=== PATIENT | female | born 1975 | race Hispanic/Latino ===

== ENCOUNTER 2018-11-11 17:36 | Emergency (ER) | payer OTHER ==
[~2018-11-11] VITALS: Ht 152.4 cm; Wt 59.0 kg
--- OUTSIDE RECORDS SUMMARY | 2018-11-11 17:38 | XMS REPORT ---
Author Author [facility], [place] Address Unknown Phone Unavailable Care Team Providers Care Edge Baster Name Role Phone UNKNOWN, REFFERING PP Unavailable OMEGA CHOW Unavailable Unavailable Problems This patient has no known problems. Allergies, Adverse Reactions, Alerts This patient has no known allergies or adverse reactions. Medications This patient has no known medications. Encounters Start Date/Time End Date/Time Encounter Type Admission Type Attending Clinicians Care Facility Care Department Encounter ID 2017-09-10 07:23:00 2017-09-10 07:23:00 Outpatient [facility] [id number] 2017-08-26 09:21:00 2017-08-26 09:21:00 Outpatient [facility] [id number] 2017-07-23 08:43:00 2017-07-23 08:43:00 Outpatient [facility] [id number] 2017-06-29 13:38:00 2017-06-29 13:38:00 Outpatient [facility] [id number] Results Test Description Test Time Test Comments Text Results Atomic Results Result Comments Mammo Digital Mammography Diagnostic, Unilat 2018-06-06 15:19:00 CLINICAL INDICATION: Status post ultrasound-guided biopsies with marker clip placement.MODALITY: Siemens Inspiration Full Field Digital MammographyTECHNIQUE: Digital acquisition of the breasts is performed on the ACR accredited Full Field Digital Mammography Unit. Computer Assisted Detection (CAD) is then accomplished using [employer]. Imaging of the left breast is performed.FINDINGS:COMPARISON STUDY: 05/11/2018The breasts are heterogeneously dense. This may lower the sensitivity of mammography. There is a new shaped marker clip in the upper outer left breast. This corresponds with the MRI enhancing nodule. There is a second new marker clip in the shape of a U in the retroareolar region.IMPRESSION:Status post ultrasound-guided biopsies with marker clip placement. Category: BIRADS - Post procedure mammograms for marker clip placement. For internal use only X:X US Biopsy, Breast Ultrasound guidance, with placement of breast localization first lesion 2018-06-06 14:32:54 CLINICAL INDICATION: N63.20 Unspecified lump in the left breast, unspecified quadrantFINDINGS:The risks and benefits of the procedure were discussed with the patient and a written informed consent obt ained.The nodule in the left breast 12 o clock subareolar region was identified under ultrasound. The skin was then cleansed with Betadine. Local anesthesia was obtained with 1% lidocaine. A small skin angelique was made using a scalpel. Under ultrasound guidance, several cores were obtained from the nodule using a 14 gauge Somacore biopsy needle. The cores were placed in formalin and sent to pathology. A U-shaped marker clip was placed at the site of biopsy. The skin incision was closed with Steri-Strips. The patient tolerated procedure well without any complications.IMPRESSION:Status post ultrasound-guided biopsy of nodule in the left breast 12 o clock, retroareolar region.Final pathology demonstrates hyalinized fibroadenoma; microcalcifications, calcium phosphate type, associated with benign lobules.The findings are concordant with imaging. A 6-month follow-up breast MRI and left breast ultrasound are recommended to document stability.The results were faxed to Dr. Chapa s office on 018.BIRADS 2 - Benign. For internal use only X:6 US Biopsy, Breast Ultrasound guidance, with placement of breast localization first lesion 2018-06-06 14:19:02 CLINICAL INDICATION: N63.20 Unspecified lump in the left breast, unspecified quadrantFINDINGS:The risks and benefits of the procedure were discussed with the patient and a written informed consent obt ained.The nodule in the left breast 2 o clock, 5 cm from the nipple was identified under ultrasound. The skin was then cleansed with Betadine. Local anesthesia was obtained with 1% lidocaine. A small skin angelique was made using a scalpel. Under ultrasound guidance, several cores were obtained from the nodule using a 14 gauge Somacore biopsy needle. The cores were placed in formalin and sent to pathology. An eye shaped marker clip was placed at the site of biopsy. The skin incision was closed with Steri-Strips. The patient tolerated procedure well without any complications.IMPRESSION:Status post ultrasound-guided biopsy of nodule in the left breast 2 o clock.Final pathology demonstrates sclerosing adenosis, pseudoangiomatous stromal hyperplasia.The findings are concordant with imaging. A 6-month follow-up breast MRI and left breast ultrasound are recommended to document stability.The findings were faxed to Dr. Chapa on 06/08/2018. For internal use only X:6 D-DIMER 2017-11-11 22:17:00 D-DIMER QUANTITATIVE (MobiPixie) (test wtao=156) 0.42 MG/L FEU <0.50 Intended Use: The D-Dimer Assay can be used to aid in the diagnosis of Deep Vein Thrombosis (DVT) and Pulmonary Embolism Disease (PED).In patients with low pre- test probability, various studies concerning STA Liatest D-dimer test have repor darline that with a cutoff value of 0.50 MG/L FEU, the Negative Predictive Value (PATIENT RELATIONS COORDINATOR V) regarding the exclusion of thrombosis is within 95-100% range.CREATINE KINASE (CK), TOTAL AND [id number] 22:16:00* Test Item Value Reference Range Comments CREATINE KINASE TOTAL (BEAKER) (test xmmy=360) 82 U/L 29-200 CREATINE KINASE-MB (AMS-QiAKER) (test eawm=172) 0.9 ng/mL 0.0-6.6 CREATINE KINASE-MB INDEX (BEAKER) (test rerz=892) 1.1 % CK-MB Reference Range:<6.7 Normal6.7-10.0 Borderline>10.0 Abnormal TROPONIN [id number] 22:16:00* Test Item Value Reference Range Comments TROPONIN I (AMS-QiAKER) (test keej=433) < ng/mL 0.00-0.03 Troponin I (TnI) levels must be interpreted in the context of the presenting sym ptoms and the clinical findings. Elevated TnI levels indicate myocardial damage, but are not specific for ischemic heart disease. Elevated TnI levels are seen in patients with other cardiac conditions (including myocarditis and congestive h eart failure), and slight TnI elevations occur in patients with other conditions , including sepsis, renal failure, acidosis, acute neurological disease, and per sistent tachyarrhythmia.HCG, QUANTITATIVE, [id number] 22:15:00* Test Item Value Reference Range Comments GONADOTROPIN, CHORIONIC (HCG) QUANT (AMS-QiAKER) (test eicl=527) < mIU/mL 0-10 Non- Females: <10 mIU/mL Females: Gestation Age Reference Range(mIU/mL) 0.2-1 Week 5-50 1-2 Weeks 50-500 2-3 Weeks 100-5,000 3-4 Weeks 500-10,000 4-5 Weeks 1,000-50,000 5-6 Weeks 10,000-100,000 6-8 Weeks 15,000-200,000 2-3 Months 10,000-100,000 RAD, CHEST, 1 VIEW, NON [id number] 22:11:00Reason for exam:->PALPITATIONSReason for exam:-> HYPERTENSIONReason for exam:->SHORTNESS OF BREATHShould this be performed at the bedside?->YesFINAL REPORT History: Palpitations, hypertension, shortness of breath. Comparison: None. Findings: A single view of the chest is submitted. The cardiomediastinal contours are unremarkable. There is no focal consolidation, pneumothorax, large pleural effusion or evidence of overt pulmonary edema. There is no acute bony abnormality. Impression: No acute abnormality. Signed: Adonis Quick MDReport Verified Date/Time: 11/11/2017 22:11:29 Reading Location: [address] Reading Room C METABOLIC [id number] 22:09:00* Test Item Value Reference Range Comments SODIUM (BEAKER) (test gbue=833) 138 meq/L 136-145 POTASSIUM (BEAKER) (test xkvu=258) 3.7 meq/L 3.5-5.1 Specimen slightly hemolyzed CHLORIDE (BEAKER) (test cxip=851) 108 meq/L 98-107 CO2 (BEAKER) (test wdqi=112) 17 meq/L 22-29 BLOOD UREA NITROGEN (BEAKER) (test ahpv=925) 8 mg/dL 7-21 CREATININE (BEAKER) (test xyzg=761) 0.70 mg/dL 0.57-1.25 Specimen slightly hemolyzed GLUCOSE RANDOM (BEAKER) (test lsie=188) 100 mg/dL 70-105 CALCIUM (BEAKER) (test mchn=473) 9.4 mg/dL 8.4-10.2 EGFR (BEAKER) (test fflc=7809) 92 mL/min/1.73 sq m INSUFFICIENT CLINICAL DATA TO CALCULATE ESTIMATED GFR. CBC W/PLT COUNT & AUTO [id number] 21:50:00* Test Item Value Reference Range Comments WHITE BLOOD CELL COUNT (BEAKER) (test skay=797) 10.2 K/ L 3.5-10.5 RED BLOOD CELL COUNT (BEAKER) (test utnt=935) 4.08 M/ L 3.93-5.22 HEMOGLOBIN (BEAKER) (test mqou=664) 11.2 GM/DL 11.2-15.7 HEMATOCRIT (BEAKER) (test hfpp=393) 33.2 % 34.1-44.9 MEAN CORPUSCULAR VOLUME (BEAKER) (test lclx=379) 81.4 fL 79.4-94.8 MEAN CORPUSCULAR HEMOGLOBIN (BEAKER) (test dnea=513) 27.5 pg 25.6-32.2 MEAN CORPUSCULAR HEMOGLOBIN CONC (BEAKER) (test crxh=405) 33.7 GM/DL 32.2-35.5 RED CELL DISTRIBUTION WIDTH (BEAKER) (test ciob=866) 13.2 % 11.7-14.4 PLATELET COUNT (BEAKER) (test eezh=016) 336 K/CU MM 150-450 MEAN PLATELET VOLUME (BEAKER) (test qdlg=729) 10.9 fL 9.4-12.3 NUCLEATED RED BLOOD CELLS (BEAKER) (test fiao=121) 0 /100 WBC 0-0 NEUTROPHILS RELATIVE PERCENT (BEAKER) (test pisl=577) 64 % LYMPHOCYTES RELATIVE PERCENT (BEAKER) (test mlkr=697) 26 % MONOCYTES RELATIVE PERCENT (BEAKER) (test cgdc=698) 9 % EOSINOPHILS RELATIVE PERCENT (BEAKER) (test qdqm=834) 1 % BASOPHILS RELATIVE PERCENT (BEAKER) (test lest=345) 1 % NEUTROPHILS ABSOLUTE COUNT (BEAKER) (test qbdt=197) 6.49 K/ L 1.56-6.13 LYMPHOCYTES ABSOLUTE COUNT (BEAKER) (test wkyu=315) 2.63 K/ L 1.18-3.74 MONOCYTES ABSOLUTE COUNT (BEAKER) (test yybh=013) 0.89 K/ L 0.24-0.36 EOSINOPHILS ABSOLUTE COUNT (BEAKER) (test zlpt=448) 0.10 K/ L 0.04-0.36 BASOPHILS ABSOLUTE COUNT (BEAKER) (test gkhl=139) 0.05 K/ L 0.01-0.08 IMMATURE GRANULOCYTES-RELATIVE PERCENT (BEAKER) (test mxzi=8300) 0 % 0-1 [facility] MAMMO DIAGNOSTIC UNI [id number] 10:51:29Dictation location: R 16Right breast stereotactic core biopsy with marker clip placement andpostprocedure mammogram: History: 42-year-old female presents for st ereotactic biopsy ofmicrocalcifications in the central outer right breast. Image s from mammogram dated 07/23/2017 were reviewed. Informed consentwas obtained fr om the patient which included a discussion of risks,benefits and alternatives.Th e patient was positioned prone on the table and head golf professional and stereotacticimages of the calcifications in the central outer right breast wereobtained. The breast wa s prepped using Exidine solution. 1% Lidocainewas injected for superficial anest hesia followed by 1% lidocaine withepinephrine injected to anesthetize the area surrounding themammographic lesion.An incision was made in the skin with a scalp el. Using a lateralapproach, the vacuum-assisted probe was inserted through the incision tothe level of the lesion following the stereotactic coordinates. Stere otactic images were obtained to confirm accurate positioning of theprobe and mul tiple 12 gauge cores of tissue were acquired. A biopsymarker was deployed to ma rk the biopsy site.Calcifications were present in the specimen radiograph.Postpr ocedure mammogram was performed to evaluate clip placement. Pleasenote, a diagno stic mammogram was not performed. The biopsy marker is inthe expected location. The tissue was sent to the pathologist for histologic analysis.Pressure was held on the biopsy site until all bleeding subsided. Theestimated blood loss was ne gligible. Post biopsy instructions werereviewed with the patient and a copy was given to her.The patient tolerated the procedure well and left the department in goodcondition.IMPRESSION:Stereotactic vacuum-assisted core biopsy of calcificat ions in thecentral outer right breast. Histopathology is pending.MAMM PERQ DEV BREAST 1ST [id number] 10:51:29Dictation location: R 16Right breast stereotactic core biopsy with marker clip placement andpostprocedure mammogram: History: 42-year-old female presents for stereotactic biopsy ofmicrocalcifications in the central outer right breast. Images from mammogram dated 07/23/2017 were reviewed. Informed consentwas obtained from the patient which included a discussion of risks,benefits and alternatives.The patient was positioned prone on the table and head golf professional and stereotacticimages of the calcifications in the central outer right breast wereobtained. The breast was prepped using Exidine solution. 1% Lidocainewas injected for superficial anest hesia followed by 1% lidocaine withepinephrine injected to anesthetize the area surrounding themammographic lesion.An incision was made in the skin with a scalp el. Using a lateralapproach, the vacuum-assisted probe was inserted through the incision tothe level of the lesion following the stereotactic coordinates. Stere otactic images were obtained to confirm accurate positioning of theprobe and mul tiple 12 gauge cores of tissue were acquired. A biopsymarker was deployed to ma rk the biopsy site.Calcifications were present in the specimen radiograph.Postpr ocedure mammogram was performed to evaluate clip placement. Pleasenote, a diagno stic mammogram was not performed. The biopsy marker is inthe expected location. The tissue was sent to the pathologist for histologic analysis.Pressure was held on the biopsy site until all bleeding subsided. Theestimated blood loss was ne gligible. Post biopsy instructions werereviewed with the patient and a copy was given to her.The patient tolerated the procedure well and left the department in goodcondition.IMPRESSION:Stereotactic vacuum-assisted core biopsy of calcificat ions in thecentral outer right breast. Histopathology is pending.US BX BREAST 1ST LESION US [id number] 13:34:55Dictation location: R 16BILATERAL BREAST ULTRASOUND GUIDED CORE BIOPSY WITH MARKER PLACEMENT ANDPOST-PROCEDURE RIGHT/LEFT MAMMOGRAM: History: The patient presents for ultrasound-guided core biopsy of theright breast at 10:00 and left breast at 3:00.Comparison made to prior ultrasound dated 07/23/2017.Informed consent was obtained from the patient which included adiscussion of risks, benefits and alternatives.RIGHT BREAST 10:00, 8 CM FROM THE NIPPLE:Using ultrasound guidance, aseptic technique and %1 lidocaine localanesthesia, A 14 gauge core biopsy needle was placed to the level of thenodule via coaxial technique using ultrasound guidance and multiplecores were obtained. . A ribbon-shaped marker was deployed at the biopsysite. The patient tolerated the procedure without difficulty. Thetissue specimens were placed in formalin and submitted to thepathologist for histologic analysis. Pressure was held on the biopsysite until all bleeding subsided. The estimated blood loss wasnegligible. The skin incision was closed with Steri-strips. LEFT BREAST 3:00, 4 CM FROM THE NIPPLE:Using ultrasound guidance, aseptic technique and %1 lidocaine localanesthesia, A 14 gauge core biopsy needle was placed to the level of thenodule via coaxial technique using ultrasound guidance and multiplecores were obtained. A ribbon-shaped marker was deployed at the biopsysite. The patient tolerated the procedure without difficulty. Thetissue specimens were placed in formalin and submitted to thepathologist for histologic analysis. Pressure was held on the biopsysite until all bleeding subsided. The estimated blood loss wasnegligible. The skin incision was closed with Steri-strips. Postprocedure mammogram was performed to evaluate clip placement. Pleasenote, a diagnostic mammogram was not performed. The biopsy marker is inthe expected location. Post biopsy instructions were reviewed with the patient and a copy w asgiven to her. The patient tolerated the procedure well and left thedepartment in good condition.IMPRESSION:1. Ultrasound guided core biopsy of the right kapil st at 10:00 and leftbreast at 3:00 with marker placement. 2. Histopathology is pending.US BX BREAST 1ST LESION US [id number] 13:34:55Dictation location: R 16BILATERAL BREAST ULTRASOUND GUIDED CORE BIOPSY WITH MARKER PLACEMENT ANDPOST- PROCEDURE RIGHT/LEFT MAMMOGRAM: History: The patient presents for ultrasound- guided core biopsy of theright breast at 10:00 and left breast at 3:00.Comparison made to prior ultrasound dated 07/23/2017.Informed consent was obtained from the patient which included adiscussion of risks, benefits and a lternatives.RIGHT BREAST 10:00, 8 CM FROM THE NIPPLE:Using ultrasound guidance, aseptic technique and %1 lidocaine localanesthesia, A 14 gauge core biopsy needl e was placed to the level of thenodule via coaxial technique using ultrasound gu idance and multiplecores were obtained. . A ribbon-shaped marker was deployed at the biopsysite. The patient tolerated the procedure without difficulty. Thetis tristin specimens were placed in formalin and submitted to thepathologist for histol ogic analysis. Pressure was held on the biopsysite until all bleeding subsided. The estimated blood loss wasnegligible. The skin incision was closed with Steri- strips. LEFT BREAST 3:00, 4 CM FROM THE NIPPLE:Using ultrasound guidance, ase ptic technique and %1 lidocaine localanesthesia, A 14 gauge core biopsy needle w as placed to the level of thenodule via coaxial technique using ultrasound thi nce and multiplecores were obtained. A ribbon-shaped marker was deployed at the biopsysite. The patient tolerated the procedure without difficulty. Thetissue s pecimens were placed in formalin and submitted to thepathologist for histologic analysis. Pressure was held on the biopsysite until all bleeding subsided. The estimated blood loss wasnegligible. The skin incision was closed with Steri-stri ps. Postprocedure mammogram was performed to evaluate clip placement. Pleaseno te, a diagnostic mammogram was not performed. The biopsy marker is inthe expecte d location. Post biopsy instructions were reviewed with the patient and a copy w asgiven to her. The patient tolerated the procedure well and left thedepartment in good condition.IMPRESSION:1. Ultrasound guided core biopsy of the right kapil st at 10:00 and leftbreast at 3:00 with marker placement. 2. Histopathology is pending.[facility] MAMMO DIAGNOSTIC UNI [id number] 13:34:55Dictation location: R 16BILATERAL BREAST ULTRASOUND GUIDED CORE BIOPSY WITH MARKER PLACEMENT ANDPOST-PROCEDURE RIGHT/LEFT MAMMOGRAM: History: The patient presents for ultrasound-guided core biopsy of theright breast at 10:00 and left breast at 3:00.Comparison made to prior ultrasound dated 07/23/2017.Informed consent was obtained from the patient which included adiscussion of risks, benefits and a lternatives.RIGHT BREAST 10:00, 8 CM FROM THE NIPPLE:Using ultrasound guidance, aseptic technique and %1 lidocaine localanesthesia, A 14 gauge core biopsy needl e was placed to the level of thenodule via coaxial technique using ultrasound gu idance and multiplecores were obtained. . A ribbon-shaped marker was deployed at the biopsysite. The patient tolerated the procedure without difficulty. Thetis tristin specimens were placed in formalin and submitted to thepathologist for histol ogic analysis. Pressure was held on the biopsysite until all bleeding subsided. The estimated blood loss wasnegligible. The skin incision was closed with Steri- strips. LEFT BREAST 3:00, 4 CM FROM THE NIPPLE:Using ultrasound guidance, ase ptic technique and %1 lidocaine localanesthesia, A 14 gauge core biopsy needle w as placed to the level of thenodule via coaxial technique using ultrasound thi nce and multiplecores were obtained. A ribbon-shaped marker was deployed at the biopsysite. The patient tolerated the procedure without difficulty. Thetissue s pecimens were placed in formalin and submitted to thepathologist for histologic analysis. Pressure was held on the biopsysite until all bleeding subsided. The estimated blood loss wasnegligible. The skin incision was closed with Steri-stri ps. Postprocedure mammogram was performed to evaluate clip placement. Pleaseno te, a diagnostic mammogram was not performed. The biopsy marker is inthe expecte d location. Post biopsy instructions were reviewed with the patient and a copy w asgiven to her. The patient tolerated the procedure well and left thedepartment in good condition.IMPRESSION:1. Ultrasound guided core biopsy of the right kapil st at 10:00 and leftbreast at 3:00 with marker placement. 2. Histopathology is pending.[facility] MAMMO DIAGNOSTIC UNI [id number] 13:34:55Dictation location: R 16BILATERAL BREAST ULTRASOUND GUIDED CORE BIOPSY WITH MARKER PLACEMENT ANDPOST-PROCEDURE RIGHT/LEFT MAMMOGRAM: History: The patient presents for ultrasound-guided core biopsy of theright breast at 10:00 and left breast at 3:00.Comparison made to prior ultrasound dated 07/23/2017.Informed consent was obtained from the patient which included adiscussion of risks, benefits and a lternatives.RIGHT BREAST 10:00, 8 CM FROM THE NIPPLE:Using ultrasound guidance, aseptic technique and %1 lidocaine localanesthesia, A 14 gauge core biopsy needl e was placed to the level of thenodule via coaxial technique using ultrasound gu idance and multiplecores were obtained. . A ribbon-shaped marker was deployed at the biopsysite. The patient tolerated the procedure without difficulty. Thetis tristin specimens were placed in formalin and submitted to thepathologist for histol ogic analysis. Pressure was held on the biopsysite until all bleeding subsided. The estimated blood loss wasnegligible. The skin incision was closed with Steri- strips. LEFT BREAST 3:00, 4 CM FROM THE NIPPLE:Using ultrasound guidance, ase ptic technique and %1 lidocaine localanesthesia, A 14 gauge core biopsy needle w as placed to the level of thenodule via coaxial technique using ultrasound thi nce and multiplecores were obtained. A ribbon-shaped marker was deployed at the biopsysite. The patient tolerated the procedure without difficulty. Thetissue s pecimens were placed in formalin and submitted to thepathologist for histologic analysis. Pressure was held on the biopsysite until all bleeding subsided. The estimated blood loss wasnegligible. The skin incision was closed with Steri-stri ps. Postprocedure mammogram was performed to evaluate clip placement. Pleaseno te, a diagnostic mammogram was not performed. The biopsy marker is inthe expecte d location. Post biopsy instructions were reviewed with the patient and a copy w asgiven to her. The patient tolerated the procedure well and left thedepartment in good condition.IMPRESSION:1. Ultrasound guided core biopsy of the right kap[address] st at 10:00 and leftbreast at 3:00 with marker placement. 2. Histopathology is pending.US BREAST [id number] 10:55:25MAM MAMMO DIAGNOSTIC UNI W/CAD-RIGHT, US BREAST COMPLETE-RIGHT, USBREAST COMPLETE-LEFTR92.1: MAMMOGRAPHIC CALCIFCN FOUND ON DIAGNOSTIC IMAGING OF BREAST.Dictation Location: [id number] Information: 42-year-old female recalled from screeningmammogram dated 06/29/2017 for further evaluation of right breastmicrocalcifications and bilateral dense breasts.Technique: Right digital mammogram with computer assisted diagnosis. Right ML projection as well as CC and ML magnification views wereobtained.Comparison: 06/29/2017Findings: The breast is heterogeneously d ense, which may obscure small masses.Magnification views of microcalcifications in the central outer rightbreast, demonstrates grouped pleomorphic microcalcific ations that do notlayer on the lateral view. Bilateral breast ultrasound:Subsequ ent bilateral breast ultrasound was performed utilizing a highfrequency linear a rray transducer. All 4 quadrants, axilla, andretroareolar of both breasts were evaluated.Right breast:- 9:00, 5 cm from the nipple, 6 x 2 x 5 mm intramammary l ymph node withnormal morphology- 10:00, 8 cm from the nipple, 7 x 3 x 8 mm irreg ular hypoechoic nodule,possibly corresponding to the calcification seen mammogra phically.Ultrasound-guided core biopsy is recommended- 11:00, 2 cm from the nipp le, 3 x 2 x 3 mm simple cyst- Axilla, lymph node with normal morphologyLeft kapil st:- Retroareolar, dilated duct with debris- 3:00, 4 cm from the nipple, 7 x 4 x 4 mm irregular hypoechoic nodule.Ultrasound-guided core biopsy is recommended.- Axilla, lymph node with normal morphologyIMPRESSION: Suspicious nodule in the right breast at 10:00, possibly correspondingto an area of suspicious microcalci fications in the central outer rightbreast. Ultrasound-guided core biopsy of the right breast at 10:00 isrecommended. If this area does not correspond to the s uspiciousmammographic calcifications, then additional stereotactic biopsy ofthos e calcifications is recommended.Indeterminate 7 mm nodule in the left breast at 3:00. Ultrasound-guidedcore biopsy is recommended.ACR BI-RADS CATEGORY: 4-SUSP ICIOUS RECOMMENDATION: BILATERAL ULTRASOUND-GUIDED CORE BIOPSY. RIGHT BREASTSTE REOTACTIC BIOPSY.US BREAST [id number] 10:55:25MAM MAMMO DIAGNOSTIC UNI W/CAD-RIGHT, US BREAST COMPLETE-RIGHT, USBREAST COMPLETE-LEFTR92.1: MAMMOGRAPHIC CALCIFCN FOUND ON DIAGNOSTIC IMAGING OF BREAST.Dictation Location: [id number] Information: 42-year-old female recalled from screeningmammogram dated 06/29/2017 for further evaluation of right breastmicrocalcifications and bilateral dense breasts.Technique: Right digital mammogram with computer assisted diagnosis. Right ML projection as well as CC and ML magnification views wereobtained.Comparison: 06/29/2017Findings: The breast is heterogeneously d ense, which may obscure small masses.Magnification views of microcalcifications in the central outer rightbreast, demonstrates grouped pleomorphic microcalcific ations that do notlayer on the lateral view. Bilateral breast ultrasound:[facility] bilateral breast ultrasound was performed utilizing a highfrequency linear a rray transducer. All 4 quadrants, axilla, andretroareolar of both breasts were evaluated.Right breast:- 9:00, 5 cm from the nipple, 6 x 2 x 5 mm intramammary l ymph node withnormal morphology- 10:00, 8 cm from the nipple, 7 x 3 x 8 mm irreg ular hypoechoic nodule,possibly corresponding to the calcification seen mammogra phically.Ultrasound-guided core biopsy is recommended- 11:00, 2 cm from the nipp le, 3 x 2 x 3 mm simple cyst- Axilla, lymph node with normal morphologyLeft kapil st:- Retroareolar, dilated duct with debris- 3:00, 4 cm from the nipple, 7 x 4 x 4 mm irregular hypoechoic nodule.Ultrasound-guided core biopsy is recommended.- Axilla, lymph node with normal morphologyIMPRESSION: Suspicious nodule in the right breast at 10:00, possibly correspondingto an area of suspicious microcalci fications in the central outer rightbreast. Ultrasound-guided core biopsy of the right breast at 10:00 isrecommended. If this area does not correspond to the s uspiciousmammographic calcifications, then additional stereotactic biopsy ofthos e calcifications is recommended.Indeterminate 7 mm nodule in the left breast at 3:00. Ultrasound-guidedcore biopsy is recommended.ACR BI-RADS CATEGORY: 4-SUSP ICIOUS RECOMMENDATION: BILATERAL ULTRASOUND-GUIDED CORE BIOPSY. RIGHT BREASTSTE REOTACTIC BIOPSY.ELLEN MAMMO DIAGNOSTIC UNI [id number] 10:55:25MAM MAMMO DIAGNOSTIC UNI W/CAD-RIGHT, US BREAST COMPLETE-RIGHT, USBREAST COMPLETE- LEFTR92.1: MAMMOGRAPHIC CALCIFCN FOUND ON DIAGNOSTIC IMAGING OF BREAST.Dictation Location: [id number] Information: 42-year-old female recalled from screening mammogram dated 06/29/2017 for further evaluation of right breastmicrocalcificat ions and bilateral dense breasts.Technique: Right digital mammogram with compute r assisted diagnosis. Right ML projection as well as CC and ML magnification vie ws wereobtained.Comparison: 06/29/2017Findings: The breast is heterogeneously d ense, which may obscure small masses.Magnification views of microcalcifications in the central outer rightbreast, demonstrates grouped pleomorphic microcalcific ations that do notlayer on the lateral view. Bilateral breast ultrasound:[facility] bilateral breast ultrasound was performed utilizing a highfrequency linear a rray transducer. All 4 quadrants, axilla, andretroareolar of both breasts were evaluated.Right breast:- 9:00, 5 cm from the nipple, 6 x 2 x 5 mm intramammary l ymph node withnormal morphology- 10:00, 8 cm from the nipple, 7 x 3 x 8 mm irreg ular hypoechoic nodule,possibly corresponding to the calcification seen mammogra phically.Ultrasound-guided core biopsy is recommended- 11:00, 2 cm from the nipp le, 3 x 2 x 3 mm simple cyst- Axilla, lymph node with normal morphologyLeft kapil st:- Retroareolar, dilated duct with debris- 3:00, 4 cm from the nipple, 7 x 4 x 4 mm irregular hypoechoic nodule.Ultrasound-guided core biopsy is recommended.- Axilla, lymph node with normal morphologyIMPRESSION: Suspicious nodule in the right breast at 10:00, possibly correspondingto an area of suspicious microcalci fications in the central outer rightbreast. Ultrasound-guided core biopsy of the right breast at 10:00 isrecommended. If this area does not correspond to the s uspiciousmammographic calcifications, then additional stereotactic biopsy ofthos e calcifications is recommended.Indeterminate 7 mm nodule in the left breast at 3:00. Ultrasound-guidedcore biopsy is recommended.ACR BI-RADS CATEGORY: 4-SUSP ICIOUS RECOMMENDATION: BILATERAL ULTRASOUND-GUIDED CORE BIOPSY. RIGHT BREASTSTE REOTACTIC BIOPSY.[facility] MAMMO SCREENING PASTOR [id number] 16:07:54MAM MAMMO SCREENING PASTOR W/[id number]: ENCNTR SCREEN MAMMOGRAM FOR MALIGNANT NEOPLASM OF BREAST.Dictation Location: [id number] Information: Screening mammogram.T echnique: Bilateral digital mammogram with computer assisted diagnosis. Bilatera l CC and MLO views were obtained.Comparison: None.Findings: The breasts are het erogeneously dense, which may obscure small masses. There are grouped microcalci fications in the central outer right breast.Additional scattered benign type palma cifications are present bilaterally.There are no suspicious masses or microcalci fications.IMPRESSION: Right breast microcalcifications, for which magnification views arerecommended for further evaluation.Dense breast, for which bilateral b reast ultrasound is recommended forfurther evaluation.The patient will be contac darline regarding need for additional imaging.ACR BI=RADS CATEGORY-0 INCOMPLETE. NE ED ADDITIONAL IMAGING EVALUATION.RECOMMENDATION: DIAGNOSTIC RIGHT MAMMOGRAM. BI LATERAL BREASTULTRASOUND.
--- OUTSIDE RECORDS SUMMARY | 2018-11-11 17:38 | XMS REPORT | Clinical Summary ---
Author Author JULISA [facility] Address Unknown Phone Unavailable Care Team Providers Care Space Operations Officer Name Role Phone Jaki Mike MD PCP Allergies No Known Allergies Medications No known medications Active Problems Problem Noted Date Non-cardiac chest pain 11/11/2017 Anxiety state 11/11/2017 Dyspnea and respiratory abnormality 11/11/2017 Encounters Care Team Description Date Type Specialty Sandip, Madelyn Feliciano DO Non-cardiac chest pain (Primary Dx); Anxiety state; Dyspnea and respiratory abnormality 11/11/2017 Emergency Emergency Medicine 11/11/2017 Orders Only General Internal Medicine after 11/10/2017 Social History Date Tobacco Use Types Packs/Day Years Used Never Smoker Smokeless Tobacco: Never Used Alcohol Use Drinks/Week oz/Week Comments No Sex Assigned at Date Recorded Not on file Industry Job Start Date Occupation Not on file Not on file Not on file Travel End Travel History Travel Start No recent travel history available. Last Filed Vital Signs Time Taken Vital Sign Reading 11/11/2017 10:40 PM CDT Blood Pressure 134/84 11/11/2017 10:40 PM CDT Pulse 99 11/11/2017 8:29 PM CDT Temperature 36.8 C (98.3 F) 11/11/2017 8:29 PM CDT Respiratory Rate 20 11/11/2017 10:40 PM CDT Oxygen Saturation 100% - Inhaled Oxygen - Concentration 11/11/2017 8:29 PM CDT Weight 59 kg (130 lb) 11/11/2017 8:29 PM CDT Height 152.4 cm (5') 11/11/2017 8:29 PM CDT Body Mass Index 25.39 Plan of Treatment Not on file Procedures Comments Procedure Name Priority Date/Time Associated Diagnosis ED ECG INTERPRETATION Routine 11/11/2017 10:22 PM CDT XR CHEST 1 VIEW STAT 11/11/2017 PORTABLE/BEDSIDE 10:05 PM CDT CBC W/PLT COUNT & AUTO STAT 11/11/2017 DIFFERENTIAL 9:40 PM CDT HCG, QUANTITATIVE, STAT 11/11/2017 9:40 PM CDT BASIC METABOLIC PANEL (7) STAT 11/11/2017 9:40 PM CDT D-DIMER STAT 11/11/2017 9:40 PM CDT TROPONIN I STAT 11/11/2017 9:40 PM CDT CREATINE KINASE (CK), STAT 11/11/2017 TOTAL AND MB 9:40 PM CDT CBC W/PLT COUNT & AUTO STAT 11/11/2017 DIFFERENTIAL 9:40 PM CDT ECG 12-LEAD STAT 11/11/2017 8:26 PM CDT after 11/10/2017 Results * ED ECG Interpretation (11/11/2017 10:22 PM CDT) Narrative Performed At Madelyn Oropeza DO 11/11/2017 10:22 PM ECG/EKG Interpretation Date/Time: 11/11/2017 10:21 PM Performed by: MADELYN OROPEZA Authorized by: MADELYN OROPEZA The ECG was interpreted by ED physician. This ECG was not compared with previous ECG(s).The ECG is interpreted as sinus tachycardia. Rate is tachycardic. Heart rate is 119 BPM. Conduction: conduction normal. ST segments normal. T waves normal. Pickens is normal. Other findings: no other findings. Clinical Impression: non-specific ECGECG reviewed and does not meet STEMI criteria. * XR chest 1 view portable / bedside (11/11/2017 10:05 PM CDT) Specimen Narrative Performed At FINAL REPORT [facility] History: Palpitations, hypertension, shortness of breath. Comparison: None. Findings: A single view of the chest is submitted. The cardiomediastinal contours are unremarkable. There is no focal consolidation, pneumothorax, large pleural effusion or evidence of overt pulmonary edema. There is no acute bony abnormality. Impression: No acute abnormality. Signed: Apollo Quick MD Report Verified Date/Time:11/11/2017 22:11:29 Reading Location: [address] Reading Room Procedure Note Interface, External Ris In - 11/11/2017 10:13 PM CDT FINAL REPORT History: Palpitations, hypertension, shortness of breath. Comparison: None. Findings: A single view of the chest is submitted. The cardiomediastinal contours are unremarkable. There is no focal consolidation, pneumothorax, large pleural effusion or evidence of overt pulmonary edema. There is no acute bony abnormality. Impression: No acute abnormality. Signed: Apollo Quick MD Report Verified Date/Time: 11/11/2017 22:11:29 Reading Location: [address] Reading Room Performing Organization Address City/State/Zipcode Phone Number GE RIS * CBC with platelet count + automated diff (11/11/2017 9:40 PM CDT) WBC 10.2 3.5 - 10.5 K/L [facility] RBC 4.08 3.93 - 5.22 M/L [facility] Hemoglobin 11.2 11.2 - 15.7 GM/DL [facility] Hematocrit 33.2 (L) 34.1 - 44.9 % [facility] MCV 81.4 79.4 - 94.8 fL [facility] MCH 27.5 25.6 - 32.2 pg [facility] MCHC 33.7 32.2 - 35.5 GM/DL [facility] RDW 13.2 11.7 - 14.4 % [facility] Platelets 336 150 - 450 K/CU MM [facility] MPV 10.9 9.4 - 12.3 fL [facility] nRBC 0 0 - 0 /100 WBC [facility] % Neutros 64 % [facility] % Lymphs 26 % [facility] % Monos 9 % [facility] % Eos 1 % [facility] % Baso 1 % [facility] # Neutros 6.49 (H) 1.56 - 6.13 K/L [facility] # Lymphs 2.63 1.18 - 3.74 K/L [facility] # Monos 0.89 (H) 0.24 - 0.36 K/L [facility] # Eos 0.10 0.04 - 0.36 K/L [facility] # Baso 0.05 0.01 - 0.08 K/L [facility] Immature 0 0 - 1 % [facility] Granulocytes-Relative [facility] Specimen Blood Performing Organization Address City/State/Zipcode Phone Number [facility] [address] [place] [address] [facility] * Troponin I (not available at [facility] [place]) (11/11/2017 9:40 PM CDT) Troponin I <0.01 0.00 - 0.03 ng/mL [facility] Specimen Blood Narrative Performed At Troponin I (TnI) levels must be interpreted in the context of the presenting [facility] symptoms and the clinical findings. Elevated TnI levels indicate myocardial [facility] damage, but are not specific for ischemic heart disease. Elevated TnI levels are seen in patients with other cardiac conditions (including myocarditis and congestive heart failure), and slight TnI elevations occur in patients with other conditions, including sepsis, renal failure, acidosis, acute neurological disease, and persistent tachyarrhythmia. Performing Organization Address City/State/[place] [address] [facility] * D-dimer (11/11/2017 9:40 PM CDT) D-Dimer, Quant 0.42 <0.50 MG/L FEU [facility] Specimen Blood Narrative Performed At Intended Use: The D-Dimer Assay can be used to aid in the diagnosis of Deep Vein [facility] Thrombosis (DVT) and Pulmonary Embolism Disease (PED). [facility] In patients with low pre-test probability, various studies concerning STA Liatest D-dimer test have reported that with a cutoff value of 0.50 MG/L FEU, the Negative Predictive Value (NPV) regarding the exclusion of thrombosis is within 95-100% range. Performing Organization Address [facility] [place] [address] [phone] [place] [address] * hCG, quantitative, (11/11/2017 9:40 PM CDT) hCG Quant <1 0 - 10 mIU/mL [facility] Specimen Blood Narrative Performed At Non- Females: <10 mIU/mL [facility] Females: [facility] Gestation AgeReference Range(mIU/mL) 0.2-1 Week5-50 1-2 [id number] 2-3 Weeks 100-5,000 3-4 Weeks 500-10,000 4-5 Weeks 1,000-50,000 5-6 Weeks10,000-100,000 6-8 Weeks15,000-200,000 2-3 Months 10,000-100,000 Performing Organization Address City/[facility] Cent[facility]ode Phone Number [place] [phone] [place] [address] [facility] * Creatine Kinase (CK), Total and MB (not available at [facility] [place]) (11/11/2017 9:40 PM CDT) Total CK 82 29 - 200 U/L [facility] CK-MB 0.9 0.0 - 6.6 ng/mL [facility] MB Relative Index 1.1 % [facility] Specimen Blood Narrative Performed At CK-MB Reference Range: [facility] <6.7Normal [facility] 6.7-10.0Borderline >10.0 Abnormal Performing Organization Address [facility] Phone Number [facility] [address] [place] [address] [facility] * Basic metabolic panel (Na, K+, Cl, CO2, Glu, Ca, BUN, Cr) (11/11/2017 9:40 PM CDT) Sodium 138 136 - 145 meq/L [facility] Potassium 3.7Comment: Specimen slightly 3.5 - 5.1 meq/L [facility] Chloride 108 (H) 98 - 107 meq/L [facility] CO2 17 (L) 22 - 29 meq/L [facility] BUN 8 7 - 21 mg/dL [facility] Creatinine 0.70Comment: Specimen slightly 0.57 - 1.25 mg/dL [facility] Glucose 100 70 - 105 mg/dL [facility] Calcium 9.4 8.4 - 10.2 mg/dL [facility] EGFR 92Comment: INSUFFICIENT mL/min/1.73 sq m [facility] CLINICAL DATA TO CALCULATE [facility] ESTIMATED GFR. Specimen Blood Performing Organization Address City/[facility] Centercode Phone Number [facility] [address] [place] [address] [facility] * ECG 12 lead (11/11/2017 8:26 PM CDT) Specimen Narrative Performed At Ventricular Rate 119 BPM GE MUSE Atrial Rate 119 BPM P-R Interval 130 ms QRS Duration 68 ms Q-T Interval 326 ms QTC Calculation(Bazett) 458 ms P Pickens 57 degrees R Pickens 23 degrees T Pickens 51 degrees Sinus tachycardia Cannot rule out Anterior infarct , age undetermined Abnormal ECG No previous ECGs available Confirmed by MD AKI, AB ([id number]) on 11/12/2017 7:10:37 AM Procedure Note Interface, External Ris In - 11/12/2017 7:10 AM CDT Ventricular Rate 119 BPM Atrial Rate 119 BPM P-R Interval 130 ms QRS Duration 68 ms Q-T Interval 326 ms QTC Calculation(Bazett) 458 ms P Pickens 57 degrees R Pickens 23 degrees T Pickens 51 degrees Sinus tachycardia Cannot rule out Anterior infarct , age undetermined Abnormal ECG No previous ECGs available Confirmed by MD AKI, AB ([id number]) on 11/12/2017 7:10:37 AM Performing Organization Address City/State/Zipcode Phone Number GE MUSE after 11/10/2017 Insurance Payer Benefit Subscriber ID Type Phone Address Plan / Group [employer] - [employer] HMO xxxxxxxxxx HMO/POS POS QPOS
[2018-11-11] MEDS ORDERED: ASPIRIN 81 MG CHEW TAB PO ONE (18:15)
[2018-11-11 18:21] LABS: BASOPHILS % 0.6 % (0.0-1.0); EOSINOPHILS # (AUTO) 0.1 (0.0-0.4); EOSINOPHILS % 0.9 % (0.0-6.0); HEMATOCRIT 31.2 % (34.2-44.1); LYMPHOCYTES # (AUTO) 2.1 (1.0-3.2); LYMPHOCYTES % 30.5 % (18.0-39.1); MEAN CORPUSCULAR HEMOGLOBIN 24.3 pg (28-32); MEAN CORPUSCULAR HGB CONC 32.1 g/dL (31-35); MEAN CORPUSCULAR VOLUME 75.7 fL (81-99); MONOCYTES # (AUTO) 0.6 (0.2-0.8); MONOCYTES % 8.1 % (4.4-11.3); NEUTROPHILS # (AUTO) 4.1 (2.1-6.9); NEUTROPHILS % 59.6 % (38.7-80.0); PLATELET COUNT 342 x10e3/uL (140-360); RED BLOOD COUNT 4.12 x10e6/uL (3.6-5.1); RED CELL DISTRIBUTION WIDTH 15.4 % (11.7-14.4)
[2018-11-11 18:22] LABS: CLARITY,URINE CLEAR (CLEAR); COLOR,URINE YELLOW (YELLOW); KETONES,URINE NEGATIVE (NEGATIVE); LEUKOCYTE ESTERASE ,URINE NEGATIVE (NEGATIVE); NITRITE,URINE NEGATIVE (NEGATIVE); PROTEIN,URINE DIPSTICK NEGATIVE (NEGATIVE); URINE UROBILINOGEN 0.2 mg/dL (0.2 - 1)
[2018-11-11 18:23] LABS: BILIRUBIN,URINE NEGATIVE (NEGATIVE)
[2018-11-11 18:30] LABS: INR 0.9; PROTHROMBIN TIME 12.6 seconds (11.9-14.5)
[2018-11-11 18:31] LABS: PARTIAL THROMBOPLASTIN TIME 27.7 seconds (23.8-35.5)
[2018-11-11 18:34] LABS: BACTERIA,URINE MANY /HPF; EPITHELIAL CELLS,URINE FEW /LPF
[2018-11-11 18:40] LABS: ALANINE AMINOTRANSFERASE 21 IU/L (0-55); ALBUMIN 4.3 g/dL (3.5-5.0); ALBUMIN/GLOBULIN RATIO 1.2 (0.8-2.0); ALKALINE PHOSPHATASE 50 IU/L (40-150); ANION GAP 12.6 mmol/L (8-16); BLOOD UREA NITROGEN 5 mg/dL (7-26); BUN/CREATININE RATIO 7 (6-25); CALCIUM 9.6 mg/dL (8.4-10.2); CARBON DIOXIDE 23 mmol/L (22-29); CHLORIDE 107 mmol/L (98-107); CREATINE KINASE 92 IU/L (29-168); CREATININE, SERUM 0.69 mg/dL (0.57-1.11); EST GLOMERULAR FILTRATION RATE > 60 ML/MIN (60-); GLUCOSE 83 mg/dL (74-118); POTASSIUM 3.6 mmol/L (3.5-5.1); SODIUM 139 mmol/L (136-145)
[2018-11-11] MEDS ORDERED: DIAZEPAM 5 MG TAB PO ONE (18:45)
--- NOTE | 2018-11-11 20:09 | Diagnostic Imaging Report ---
EXAMINATION: CHEST SINGLE (PORTABLE) INDICATION: Chest pain. COMPARISON: None FINDINGS: TUBES and LINES: None. LUNGS: Lungs are well inflated. Lungs are clear. There is no evidence of pneumonia or pulmonary edema. PLEURA: No pleural effusion or pneumothorax. HEART AND MEDIASTINUM: The cardiomediastinal silhouette is unremarkable. BONES AND SOFT TISSUES: No acute osseous lesion. Soft tissues are unremarkable. UPPER ABDOMEN: No free air under the diaphragm. IMPRESSION: No acute thoracic abnormality. Signed by: Dr. Sierra Payan M.D. on 11/11/2018 8:06 PM
[2018-11-11 20:40] VITALS: BP 155/104
== END 2018-11-11 20:44 | disposition home or self-care (01) ==
LOC: ER 17:36
DX: R42 Dizziness and giddiness (principal); F41.9 Anxiety disorder, unspecified; R00.2 Palpitations
CPT/HCPCS: 36415; 71045; 80053; 81001; 82550; 82553; 83880; 84443; 84484; 85025; 85610; 85730; 93005; 99284